=== PATIENT | male | born 1990 | race Two or more races ===

== ENCOUNTER 2024-08-28 22:33 | Emergency (ER) | payer OTHER ==
[~2024-08-28] VITALS: Ht 177.8 cm; Wt 131.5 kg
[2024-08-28] MEDS: ACETAMINOPHEN 500 MG TABLET PO ONE (23:48)
[2024-08-28] MEDS: TraMADol HCL 50 MG TABLET PO ONE (23:48)
[2024-08-29 00:57] VITALS: TEMP 98.6
[2024-08-29 01:00] VITALS: BP 130/73; PULSE 72; RESP 16; O2SAT 96
== END 2024-08-29 02:23 | disposition home or self-care (01) ==
LOC: EMS 22:35
DX: S83.91XA Sprain of unspecified site of right knee, initial encounter (principal); J45.909 Unspecified asthma, uncomplicated; Z87.19 Personal history of other diseases of the digestive system; Z98.890 Other specified postprocedural states; Y08.89XA Assault by other specified means, initial encounter; Y93.89 Activity, other specified; Y92.89 Other specified places as the place of occurrence of the external cause; Y99.8 Other external cause status
CPT/HCPCS: 99284; 73562-TC; 73590-TC; Z7502; Z7610